=== PATIENT | female | born 1990 | race Caucasian/White ===

== ENCOUNTER 2018-05-24 06:42 | Inpatient (IN) ==
[2018-05-24 03:53] LABS: Bilirubin,Urine Negative (Negative); Blood,Urine Small (Negative); Clarity,Urine Clear (Clear); Color,Urine Yellow (Yellow); Glucose,Urine (UA) Normal (Normal); Ketones,Urine Negative (Negative); Leukocyte Esterase,Urine Negative (Negative); Nitrite,Urine Negative (Negative); Protein,Urine Negative (Neg-Trace); Specific Gravity,Urine 1.018 (1.010-1.025); Urobilinogen,Urine Normal (Normal)
[2018-05-24 03:55] LABS: Bacteria,Urine None Seen per hpf (None-Few); Hyaline Casts,Urine None Seen per lpf (None-Few); Squamous Epithelial Cell,Urine Many per lpf (None-Few); WBC,Urine 0-3 per hpf (0-3)
[2018-05-24 04:16] LABS: Amphetamine Screen,Urine Negative ng/mL (Cutoff=1000); Barbiturate Screen,Urine Negative ng/mL (Cutoff=200); Benzodiazepines Screen,Urine Negative ng/mL (Cutoff=200); Cannabinoid Screen,Urine Negative ng/mL (Cutoff = 50); Cocaine Screen,Urine Negative ng/mL (Cutoff= 300); Opiate Screen,Urine Negative ng/mL (Cutoff=300); Phencyclidine Screen,Urine Negative ng/mL (Cutoff=25)
[~2018-05-24 06:42] MED LIST: *HR* Nalbuphine 10 MG/ML AMPUL IVP PRN; Famotidine 20 MG/2 ML VIAL IVP PRN; Metoclopramide 10 MG/2 ML VIAL IVP PRN; Naloxone 0.4 MG/ML INJ IVP PRN; Ondansetron 4 MG/2 ML VIAL IVP PRN
--- NOTE | 2018-05-24 06:48 | OB/GYN History & Physical ---
Date of Encounter: 05/24/18 Time of Encounter: 06:47 Assessment and Plan (1) 39 weeks gestation of Current visit: Yes Status: Acute (2) Spontaneous onset of labor Current visit: Yes Status: Acute Admit for labor. Expectant management. Epidural when requested. Anticipate . Dr. Perrin notified. (3) Rh negative status during in third trimester, antepartum Current visit: Yes Status: Acute (4) Obesity affecting in third trimester, antepartum Current visit: Yes Status: Acute (5) macrosomia during in third trimester Current visit: Yes Status: Acute Qualifiers: Fetus number: single or unspecified fetus Qualified Code(s): O36.63X0 - Maternal care for excessive growth, third trimester, not applicable or unspecified History of Present Illness Chief complaint: contractions HPI: Ms. Nevarez is a 27 year old female presenting at 39w4d with c/o contractions that are getting stronger and leaking clear fluid. She denies bleeding or other complaints. Good FM. This has been complicated by obesity and vaginal varicosity rupture at 14 weeks as well as macrosomia. EFW 2 weeks ago was 8lbs 6oz per pt. Blood type O neg Rubella immune Serologies negative GBS negative Past Med Surg Social Fam HX - Past Medical History Medical history: no medical history Psychiatric history: no psych history - Past Surgical History Surgical History: no surgical history - Social History Smoking Status: Never smoker Smokeless Tobacco Status: No Alcohol use: none Drug use: none - Family History Mother Age: 50 Living Status: Still Living Hx Family Endocrine Disorder: Yes (type II diabetes) Obstetrical History - Pregnancies : 1 Medications and Allergies Gummies 05/24/18 [History] Tylenol 05/24/18 [History] 3 Allergy/AdvReac Type Severity Reaction Status Date / Time No Known Allergies Allergy Verified 05/24/18 03:15 Review of System OB All systems PM: reviewed and no additional remarkable complaints except as stated Exam - Constitutional Constitutional: well developed, moderate distress, obese - HEENT HEENT: Mucus Membranes Moist - Lungs Respiratory exam: CTAB - Cardiovascular Cardiovascular exam: RRR - Abdomen Abdomen: Present: gravid, non tender - Extremities Extremities exam: normal inspection - Cervix Dilation: 3 Effacement: 90 Station: -1 - Anus/Rectum Anus/Rectum: Present: normal perianal skin Results Abnormal lab results Urine Blood Small (Negative) H 05/24/18 03:35 Urine Microscopic RBC 3-5 per hpf (0-3) H 05/24/18 03:35 Ur Squamous Epith Cells Many per lpf (None-Few) H 05/24/18 03:35 All other labs normal. - VTE Reasons for not Prescribing Prophylaxis: Treatment not Indicated - Low risk for VTE
[2018-05-24] MEDS: Ringers Solution, Lactated 1,000 ML IVC SCH ×2 (07:36→13:08)
[2018-05-24 07:47] LABS: Basophils # 0.1 K/mcL (0.0-0.2); Basophils % 0.3 %; Eosinophils # 0.1 K/mcL (0.0-0.6); Eosinophils % 0.8 %; Hemoglobin 13.2 g/dL (11.5-15.4); Immature Granulocytes % 0.7 % (0-4); Lymphocytes # 2.8 K/mcL (0.6-4.6); Lymphocytes % 16.9 %; Mean Corpuscular Hemoglobin 25.5 pg (28.0-33.3); Mean Corpuscular Volume 77.2 fL (83.0-100.0); Mean Platelet Volume 10.7 fL (9.4-12.4); Monocytes # 1.3 K/mcL (0.0-1.3); Monocytes % 7.6 %; Neutrophils # 12.2 K/mcL (1.6-8.9); Platelet Count 282 K/mcL (140-400); Red Blood Count 5.18 M/mcL (3.82-4.97); Red Cell Distribution Width 18.1 % (11.5-14.5); Segmented Neutrophils % 73.7 %
--- NOTE | 2018-05-24 07:57 | Anesthesia Evaluation PreOp ---
Date of Encounter: 05/24/18 Time of Encounter: 07:46 - Past History Planned Operation: labor epidural Cardiac History: Denies any Significant Hx Pulmonary History: Denies Any Significant HX COSMETIC SALES CONSULTANT History: Denies Any Significant HX Other Medical History: Other (Morbid obesity. BMI 50.) Anesthesia History: No Prior Anesthetic Complications (Never had GA or sedation. Denies FHAP.) : Yes Alcohol Use: none Drug use: none Medications and Allergies Gummies 05/24/18 [History] Tylenol 05/24/18 [History] 3 Allergy/AdvReac Type Severity Reaction Status Date / Time No Known Allergies Allergy Verified 05/24/18 03:15 - Meds/Allergy Pre-op Review Medications Reviewed: Yes Allergies Reviewed: Yes Beta Blockers on Current Med List: No Anesthesia Results - Labs 05/24/18 07:20 Anesthesia Exam VSS and FHTs stable. Height: 1.6m Weight: 141kg NPO (# of Hours): 8 Pain Scale: 7 Pain Scale Used: Numeric (1 - 10) - HEENT Pupil (Motor): Pupils equal, EOMI Mallampati: II Teeth: Normal Oral Opening: Greater than 3 - COSMETIC SALES CONSULTANT LOC: Oriented COSMETIC SALES CONSULTANT Motor: Normal RUE, Normal LUE, Normal RLE, Normal LLE, Normal Face COSMETIC SALES CONSULTANT Sensory: Normal: RUE, LUE, RLE, LLE, Face - Cardiac Rhythm: Regular - Pulmonary Breath Sounds: bilateral Clear Respiratory Effort: Symmetrical Anesthesia Assess/Plan ASA Score: 3 Modified [place] Scale for Level of Consciousness: Cooperative, oriented, and tranquil Anesthetic Plan: Regional Monitoring Plan: Standard Monitors
[2018-05-24] MEDS ORDERED: Epidural Premix (fent/bupiv) 110 ML EP ONE ×2 (07:59→14:58)
[2018-05-24] MEDS ORDERED: *HR* FentaNYL (PF) 100 MCG/2 ML VIAL ONE (07:59)
[2018-05-24] MEDS ORDERED: Bupivacaine-MPF 0.25% 10 ML VIAL ONE (08:07)
[2018-05-24] MEDS ORDERED: Lidocaine -MPF 2% 5 ML VIAL ONE (08:07)
--- NOTE | 2018-05-24 08:46 | Anesthesia Procedures ---
Date of Encounter: 05/24/18 Time of Encounter: 08:09 Procedures: Anesthesia - Epidural/Spinal Patient ID/Chart reviewed: Yes Patient examined: Yes OB Eval: Gestational age: 39 OB Eval: : 1 OB Eval: Hx Para: 0 OB Eval: Dilated at (cm): 3 OB Eval: Contractions: Non-stressed pattern Consent Obtained: Yes Supplemental Oxygen: None/Room Air Site Prep: Aseptic Technique, Sterile prep and drape, Povidone-Iodine 1% Patient position: upright Local Anesthetic: Lidocaine 1% Amount of Local Anesthetic used: 3 Touhy Needle Gauge: 18 Touhy Needle Depth (cm): 7 Catheter Depth at Skin (cm): 18 Test Dose (1.5% Lido + Epi): Volume given (mls): 3 Test Dose Result: Negative Loading Dose: 0.25% Marcaine (mls): 8 Loading Dose: Fentanyl (mcg): 100 Loading Dose Administered: Thru Catheter Infusion Med: 0.125% Bupivacaine w/ 2 mcg/ml Fentanyl Infusion Rate (mls/hr): [address]: Tegaderm, Tape Interspace Used: L3-L4 Loss of Resistance (PEMA): Yes Blood: No CSF: No Paresthesia: No Vitals + FHT's: 3 Vital Signs Time 0809 0826 0830 0835 0840 BP 126/81 142/80 112/55 114/60 116/59 Pulse 99 103 99 102 99 FHTs 150 120 120 120 120
--- NOTE | 2018-05-24 10:39 | OB Labor Progress Note ---
Date of Encounter: 05/24/18 Time of Encounter: 10:37 Labor Progress Note - Subjective Subjective: Patient comfortable with epidural - Cervix Cervix: 5/80/-2 - Heart Tones Heart Tones: Category 1 tracing - Uehling Uehling: Contractions every 3-4 minutes - Interventions Interventions: SVE AROM forebag-thick meconium IUPC FSE - Plan Plan: Continue expectant management Frequent position changes with peanut ball Call Dr. Perrin for further orders Anticipate
[2018-05-24] MEDS ORDERED: 0.9 % Sodium Chloride 1,000 ML ONE (10:56)
[2018-05-24] MEDS ORDERED: Oxytocin 20 units/ LR 1000 mL 20 UNIT/1,000 ML BAG IVC SCH ×2 (11:30→19:45)
--- NOTE | 2018-05-24 17:03 | OB Labor Progress Note ---
Date of Encounter: 05/24/18 Time of Encounter: 17:04 Labor Progress Note - Subjective Subjective: 27 yo female who presented with PROM. Pt has labored all day with minimal cervical change. Pt wishes to proceed with a section. - Cervix Cervix: SVE 4-5/70/-1 station. - Heart Tones Heart Tones: 150-160 with accels. Pt has had intermittent late decelerations. - Interventions Interventions: Pt has been flipped side to side. Tried all positions to help. minimal cervical change - Plan Plan: Plan on primary section
[2018-05-24] MEDS ORDERED: Terbutaline 1 MG/ML VIAL SQ ONE ×2 (17:06→17:07)
[2018-05-24] MEDS ORDERED: *HR* Morphine Sulfate/PF 10 MG/10 ML AMPUL EP ONE (18:00)
[2018-05-24] MEDS ORDERED: Azithromycin 1,000 MG in D5% in Water 250 ML IVPB ONE (18:26)
[2018-05-24] MEDS ORDERED: ceFAZolin 3,000 MG in D5% in Water 100 ML IVPB ONE (18:26)
[2018-05-24] MEDS ORDERED: EPHEDrine 50 MG/ML VIAL ONE (18:32)
[2018-05-24] MEDS ORDERED: *HR* Oxytocin 10 UNIT/ML VIAL IM ONE ×2 (18:35→19:50)
[2018-05-24] MEDS ORDERED: Ringers Solution, Lactated 1,000 ML ONE ×2 (18:35→19:49)
[2018-05-24] MEDS ORDERED: Ondansetron 4 MG/2 ML VIAL ONE (18:56)
[2018-05-24] MEDS ORDERED: Acetaminophen IV 1,000 MG/100 ML INFUS..BTL IVPB ONE (19:25)
[2018-05-24] MEDS ORDERED: Ondansetron 4 MG/2 ML VIAL IVP ONE (19:25)
[2018-05-24] MEDS ORDERED: *HR* HYDROmorphone (PF) 1 MG/ML SYRINGE IVP PRN ×2 (19:25→22:25)
[2018-05-24] MEDS ORDERED: *HR* Promethazine 25 MG/ML VIAL IVP PRN (19:25)
[2018-05-24] MEDS ORDERED: *HR* Morphine 2 MG/ML SYRINGE IVP PRN ×2 (19:25→22:25)
[2018-05-24] MEDS ORDERED: *HR* OxyCODONE/APAP 5/325 TABLET PO PRN (19:43)
[2018-05-24] MEDS ORDERED: Sennosides 8.6 MG TABLET PO PRN (19:43)
[2018-05-24] MEDS ORDERED: Simethicone 80 MG TAB.CHEW PO PRN (19:43)
[2018-05-24] MEDS ORDERED: Metoclopramide 10 MG/2 ML VIAL IVP PRN (19:43)
[2018-05-24] MEDS ORDERED: Rho Immune Globulin 1,500 UNIT SYRINGE IM ONE (19:43)
[2018-05-24] MEDS ORDERED: Ondansetron 4 MG/2 ML VIAL IVP PRN (19:43)
[2018-05-24] MEDS ORDERED: Ibuprofen 600 MG TABLET PO PRN (19:43)
--- NOTE | 2018-05-24 19:51 | OB/GYN Procedure Note ---
Section - Date of procedure: 05/24/18 Preop diagnosis: arrest of descent, arrest of dilation, category 2 FHT tracing, other Post-op diagnosis: same Procedure: primary low transverse Surgeon: Umang Cooper Blood Loss: 700 Was there an assistant professor present: Yes Paper Steamer: Mely Romero Anesthesiologist: Florinda Brooks Hydro Plant Operator: Glory Callaway Anesthesia Type: Epidural - Infant (s) Infant A Delivery Date: 05/24/18 Delivery Time: 19:07 Presentation: vertex Position: OA Route of delivery: other Gender: Male Viability: Viable Pounds: 9 Ounces: 0 Gram Weight: 3.875 kg at 1 minute: 9 at 5 minutes: 9 Shoulder Dystocia: not encountered Specimens collected: cord blood Placenta: spontaneous Cord: 3 umbilical vessels - Narrative Narrative: Patient was taken back to the operating room after informed consent was obtained. Patient been laboring 16 hours with no change in over 6 hours. Patient having occasional late decelerations with meconium stained fluid being noted on presentation. Patient signed informed consent. Patient was taken back to the operating room IV in place she was discussed with her epidural. Once adequate analgesia was achieved, patient was prepped and draped in usual sterile fashion. Timeouts were performed. A Pfannenstiel incision was then made and carried sharply through the subcutaneous and fatty tissue to the fascia layer was reached. The fascia was then nicked in midline incised bilaterally with Cano scissors was then dissected vertically for adequate exposure. The rectus endoscopy procedures and separate the midline and the peritoneum sharply and dissected vertically. A bladder blade was placed at the inferior margin of the incision. The bladder flap was then developed. A low transverse incision was then made in the lower uterine segment. Fluid was noted be meconium-stained. The incision bluntly extended. The Pitocin delivered in occiput anterior presentation. The rest of the infant was not delivered. The cried immediately upon delivery course cut, there was a past nurse in attendance. Cord bloods obtained. The placenta was then delivered via uterine massage. The uterus was delivered and uterine lavage performed. Uterine incision was then closed with 0 Vicryl suture running locking fashion. One [id number] was placed for final hemostasis. At this point uterus was placed the pelvic cavity the pelvic cavity concern sterile water 20 bleeders cauterized. The fascia was then closed with loop 0 PDS from one edge of the opposite in a running nonlocking fashion. The suprafascial region of concern sterile water 2 all bleeders cauterized subcutaneous tissues were then placed with 0 Vicryl suture. The skin was closed cassidy. Patient tolerated procedure well stimulable also her cc findings a male with 9,9 Apgars weight is 9 lbs. 0 oz.
--- NOTE | 2018-05-24 21:32 | Anesthesia Evaluation Post Op ---
Date of Encounter: 05/24/18 Time of Encounter: 21:10 - Vital Signs Vital Signs: VSS throughout PACU stay - Lungs Lungs: Clear Ascult./Percussion - Airway Airway: Non-obstructed - Cardiovascular Regular Rate - Mental Status Mental Status: Alert & Oriented, Answers Appropriately - Pain Pain Scale: 3 Pain Scale used: Numeric (1 - 10) - Nausea Vomiting Nausea Vomiting: Not Present - Hydration Hydration: NPO, Johnson catheter - Discharge PostOp Status: Transfer Patient to floor
[2018-05-24] MEDS ORDERED: Oxytocin 20 units/ LR 1000 mL 20 UNIT/1,000 ML BAG IVC ONE (22:43)
[2018-05-25] MEDS: *HR* OxyCODONE/APAP 5/325 TABLET PO PRN ×4 (02:58→22:22)
[2018-05-25] MEDS ORDERED: Ringers Solution, Lactated 1,000 ML ONE (07:38)
[2018-05-25 07:46] LABS: Basophils % 0.3 %; Eosinophils # 0.1 K/mcL (0.0-0.6); Eosinophils % 0.5 %; Hematocrit 31.9 % (35.3-44.9); Hemoglobin 10.4 g/dL (11.5-15.4); Immature Granulocytes % 0.4 % (0-4); Lymphocytes # 1.9 K/mcL (0.6-4.6); Lymphocytes % 12.8 %; Mean Corpuscular HGB Conc 32.6 g/dL (31.6-35.5); Mean Corpuscular Hemoglobin 25.6 pg (28.0-33.3); Mean Corpuscular Volume 78.6 fL (83.0-100.0); Mean Platelet Volume 9.9 fL (9.4-12.4); Monocytes # 1.2 K/mcL (0.0-1.3); Monocytes % 7.9 %; Neutrophils # 11.6 K/mcL (1.6-8.9); Platelet Count 179 K/mcL (140-400); Red Blood Count 4.06 M/mcL (3.82-4.97); Red Cell Distribution Width 17.8 % (11.5-14.5); Segmented Neutrophils % 78.1 %
[2018-05-25] MEDS: Ringers Solution, Lactated 1,000 ML IVC SCH (07:53)
--- NOTE | 2018-05-25 07:58 | OB/GYN Progress Note ---
Date of Encounter: 05/25/18 Time of Encounter: 07:54 - Assessment and Plan (1) Meconium in amniotic fluid Current Visit: Yes Status: Acute (2) 39 weeks gestation of Current Visit: Yes Status: Acute (3) Arrest of dilation, delivered, current hospitalization Current Visit: Yes Status: Acute (4) macrosomia Current Visit: Yes Status: Acute Qualifiers: Fetus number: single or unspecified fetus Trimester: third trimester Qualified Code(s): O36.63X0 - Maternal care for excessive growth, third trimester, not applicable or unspecified Subjective - Subjective Principal diagnosis: s/p primary for arrest of dilation Interval history: 27 yo female P1 who presented in labor with prom. Pt had arrest of dilation and underwent primary section. Pt delivered 9# male infant. Patient reports: appetite normal, pain well controlled, ambulating normally : doing well, nursing well Objective - Vital Signs Latest vital signs: Vital Signs Temp Pulse Resp BP Pulse Ox 05/25/18 04:29 98.6 F 98 16 97/53 95 05/25/18 01:18 98.9 F 89 16 114/62 97 05/25/18 00:34 98.9 F 90 16 122/58 96 05/24/18 23:31 98.4 F 81 16 128/71 95 05/24/18 23:12 98.6 F 83 16 116/65 95 05/24/18 22:30 98.3 F 89 16 100/58 95 Intake and Output 05/24/18 05/24/18 05/25/18 15:59 23:59 07:59 Intake Total 1000 / 1000 Output Total 450 / 450 Balance 1000 / 1000 -450 / -450 Intake: IV Fluids 1000 / 1000 Lactated Ringers 1,000 ML @ 125 1000 / 1000 mls/hr IVC .Q8H JB Rx#: [id number] Output: Catheter 450 / 450 Other: Stool Characteristics Normal for Patient Weight 139.162 kg 139.2 kg Patient Weight 05/25/18 23:59 Weight 139.2 kg - Exam Lungs: bilateral: normal Chest: Normal S1, Normal S2 Extremities: Present: normal Abdomen: Present: normal appearance, soft Incision: Present: normal, dry, intact Uterus: Present: normal, firm - Labs Labs: Laboratory Results - last 24 hr 05/25/18 07:19 WBC 14.9 H RBC 4.06 Hgb 10.4 L D Hct 31.9 L MCV 78.6 L MCH 25.6 L MCHC 32.6 RDW 17.8 H Plt Count 179 MPV 9.9 Immature Gran % 0.4 Seg Neutrophils % 78.1 Lymphocytes % 12.8 Monocytes % 7.9 Eosinophils % 0.5 Basophils % 0.3 Neutrophils # 11.6 H Lymphocytes # 1.9 Monocytes # 1.2 Eosinophils # 0.1 Basophils # 0.0
[2018-05-25] MEDS ORDERED: Prenatal Vit/FA 1 EACH TABLET PO SCH (09:00)
[2018-05-25] MEDS ORDERED: Ibuprofen 600 MG TABLET PO PRN (16:11)
[2018-05-26] MEDS: *HR* OxyCODONE/APAP 5/325 TABLET PO PRN (05:47)
[2018-05-26 08:00] VITALS: BP 107/70
--- NOTE | 2018-05-26 08:14 | OB/GYN Progress Note ---
Date of Encounter: 05/26/18 Time of Encounter: 08:12 - Assessment and Plan (1) Meconium in amniotic fluid Current Visit: Yes Status: Acute (2) 39 weeks gestation of Current Visit: Yes Status: Acute (3) Arrest of dilation, delivered, current hospitalization Current Visit: Yes Status: Acute (4) macrosomia Current Visit: Yes Status: Acute Qualifiers: Fetus number: single or unspecified fetus Trimester: third trimester Qualified Code(s): O36.63X0 - Maternal care for excessive growth, third trimester, not applicable or unspecified (5) S/P primary low transverse Current Visit: Yes Status: Acute Subjective - Subjective Principal diagnosis: s/p primary Interval history: 27 yo female G1 underwent primary for arrest of dilation and macrosomic . Thick meconium noted early on. Pt underwent without difficult. Postop has done very well. Wishing to go home toda. Patient reports: appetite normal, pain well controlled, ambulating normally [place]: doing well (doing well ) Objective - Vital Signs Latest vital signs: Vital Signs Temp Pulse Resp BP Pulse Ox 05/26/18 07:59 98.6 F 89 16 107/70 96 05/25/18 20:13 98.0 F 93 16 118/73 100 05/25/18 16:52 98.1 F 97 16 107/71 96 05/25/18 12:25 98.4 F 98 16 98/61 95 Intake and Output 05/25/18 05/26/18 05/26/18 23:59 07:59 15:59 Intake Total 0 / 0 Output Total 400 / 400 650 / 650 Balance -400 / -400 -650 / -650 Intake: Oral 0 / 0 Output: Urine 400 / 400 650 / 650 Other: # Voids 1 Weight 140.024 kg Patient Weight 05/26/18 23:59 Weight 140.024 kg - Exam Lungs: bilateral: normal Chest: Normal S1 Extremities: Present: normal Abdomen: Present: normal appearance, soft Incision: Present: dry, intact Uterus: Present: normal - Labs Labs: Laboratory Results - last 24 hr 05/24/18 21:04 Baby's Blood Type O RH NEGATIVE Mother's Blood Type O RH NEGATIVE Rhogam Indicated NO
--- NOTE | 2018-05-26 08:19 | Discharge Summary ---
Date of Encounter: 05/26/18 Time of Encounter: 08:37 - Discharge Diagnosis (1) Meconium in amniotic fluid Priority: Secondary Status: Acute (2) 39 weeks gestation of Priority: Secondary Status: Acute (3) Arrest of dilation, delivered, current hospitalization Priority: Secondary Status: Acute (4) macrosomia Priority: Secondary Status: Acute Qualifiers: Fetus number: single or unspecified fetus Trimester: third trimester Qualified Code(s): O36.63X0 - Maternal care for excessive growth, third trimester, not applicable or unspecified (5) S/P primary low transverse Priority: Primary Status: Acute - Discharge Medications Home Medications: Gummies 05/24/18 [History] Tylenol 05/24/18 [History] Allergies/Adverse Reactions: 3 Allergy/AdvReac Type Severity Reaction Status Date / Time No Known Allergies Allergy Verified 05/24/18 03:15 Data Procedures and tests throughout hospitalization: Laboratory Tests 05/24/18 05/24/18 05/24/18 03:35 03:35 07:20 WBC 16.6 H RBC 5.18 H Hgb 13.2 Hct 40.0 MCV 77.2 L MCH 25.5 L MCHC 33.0 RDW 18.1 H Plt Count 282 MPV 10.7 Immature Gran % 0.7 Seg Neutrophils % 73.7 Lymphocytes % 16.9 Monocytes % 7.6 Eosinophils % 0.8 Basophils % 0.3 Neutrophils # 12.2 H Lymphocytes # 2.8 Monocytes # 1.3 Eosinophils # 0.1 Basophils # 0.1 Urine Color Yellow Urine Clarity Clear Urine pH 7.0 Ur Specific [place] 1.018 Urine Protein Negative Urine Glucose (UA) Normal Urine Ketones Negative Urine Blood Small H Urine Nitrite Negative Urine Bilirubin Negative Urine Urobilinogen Normal Ur Leukocyte Esterase Negative Urine Microscopic RBC 3-5 H Urine Microscopic WBC 0-3 Ur Squamous Epith Cells Many H Urine Bacteria None Seen Hyaline Casts None Seen Urine Opiates Screen Negative Ur Barbiturates Screen Negative Ur Phencyclidine Scrn Negative Ur Amphetamines Screen Negative U Benzodiazepines Scrn Negative Urine Cocaine Screen Negative U Marijuana (THC) Screen Negative Ur Drug Screen Interp See Below Baby's Blood Type Mother's Blood Type Rhogam Indicated 05/24/18 05/25/18 21:04 07:19 WBC 14.9 H RBC 4.06 Hgb 10.4 L D Hct 31.9 L MCV 78.6 L MCH 25.6 L MCHC 32.6 RDW 17.8 H Plt Count 179 MPV 9.9 Immature Gran % 0.4 Seg Neutrophils % 78.1 Lymphocytes % 12.8 Monocytes % 7.9 Eosinophils % 0.5 Basophils % 0.3 Neutrophils # 11.6 H Lymphocytes # 1.9 Monocytes # 1.2 Eosinophils # 0.1 Basophils # 0.0 Urine Color Urine Clarity Urine pH Ur Specific [place] Urine Protein Urine Glucose (UA) Urine Ketones Urine Blood Urine Nitrite Urine Bilirubin Urine Urobilinogen Ur Leukocyte Esterase Urine Microscopic RBC Urine Microscopic WBC Ur Squamous Epith Cells Urine Bacteria Hyaline Casts Urine Opiates Screen Ur Barbiturates Screen Ur Phencyclidine Scrn Ur Amphetamines Screen U Benzodiazepines Scrn Urine Cocaine Screen U Marijuana (THC) Screen Ur Drug Screen Interp Baby's Blood Type O RH NEGATIVE Mother's Blood Type O RH NEGATIVE Rhogam Indicated NO Labs on day of discharge: Labs from last 24 hours 05/24/18 21:04 Baby's Blood Type O RH NEGATIVE Mother's Blood Type O RH NEGATIVE Rhogam Indicated NO Date of admission: 05/24/18 06:42 Primary care physician: PCP NONE - Patient Status Disposition: Home, Self-Care Condition: Good Functional capacity at discharge: independent ambulation Overall status at discharge: patient is back to baseline - Discharge Instructions Follow Up With: NONE,PCP [Primary Care Provider] - - Diet and Activity Activity: resume usual activities as tolerated Diet: advance to your usual diet (doing well , wishes to go home) Hospital Course VOLUNTEER MANAGER Reason for admission: other (labor) Post op complications: no complications Discharge diagnosis: other (arrest of dilation, macrosomia, primary ) Time spent discussing smoking cessation with patient: more than 10 minutes Time Attestation: Total time spent providing and/or coordinating discharge services: Exam - Constitutional Vitals: Temp Pulse Resp BP Pulse Ox 98.6 F 89 16 107/70 96 05/26/18 07:59 05/26/18 07:59 05/26/18 07:59 05/26/18 07:59 05/26/18 07:59 General appearance IM: A&O X 3 - Respiratory Respiratory exam: Present: CTAB - Cardiovascular Cardiovascular exam IM: Present: RRR - GI/Abdominal GI/Abdominal exam IM: normal bowel sounds Incision: normal, dry, intact - Rectal Rectal exam: deferred - External exam: normal external exam Uterine Tone: Firm Uterus Position: 4 Fingers Below Umbilicus - Extremities Exam Extremities exam IM: Present: normal capillary refill, normal inspection - Neurological Exam Neurological exam: normal gait - VTE Reasons for not Prescribing Prophylaxis: Treatment not Indicated - Low risk for VTE Documentation of Mechanical Device: Intermittent pneumatic compression device
== END 2018-05-26 12:12 | disposition home or self-care (01) | DRG 765 ==
LOC: 1NENULAB → 1NENUOBS 22:26
PROVIDERS: ADMIT Obstetrics & Gynecology; ATTEND Obstetrics & Gynecology

== ENCOUNTER → 2020-08-16 16:30 | Observation (INO) ==
[2020-08-16 16:05] LABS: Bacteria,Urine Few per hpf (None-Few); Bilirubin,Urine Negative (Negative); Blood,Urine Negative (Negative); Clarity,Urine Clear (Clear); Color,Urine Light-Yellow (Yellow); Glucose,Urine (UA) 500 mg/dL (Normal); Ketones,Urine Trace mg/dL (Negative); Leukocyte Esterase,Urine Negative (Negative); Mucus,Urine Few per lpf (None-Few); Nitrite,Urine Negative (Negative); Protein,Urine Trace mg/dL (Neg-Trace); RBC,Urine 0-3 per hpf (0-3); Specific Gravity,Urine > 1.030 (1.010-1.025); Squamous Epithelial Cell,Urine Few per hpf (None-Few); Urobilinogen,Urine Normal (Normal); WBC,Urine 0-3 per hpf (0-3)
[~2020-08-16 16:30] MED LIST changes: -*HR* Nalbuphine 10 MG/ML AMPUL IVP PRN; +FLU Vac QV 20-21 (6Month+)/PF 0.5 ML SYRINGE IM ONE; -Famotidine 20 MG/2 ML VIAL IVP PRN; -Metoclopramide 10 MG/2 ML VIAL IVP PRN; -Naloxone 0.4 MG/ML INJ IVP PRN; -Ondansetron 4 MG/2 ML VIAL IVP PRN
== END | disposition home or self-care (01) ==
LOC: 1NENULAB
PROVIDERS: ADMIT Obstetrics & Gynecology; ATTEND Obstetrics & Gynecology

== ENCOUNTER → 2020-10-27 19:28 | Observation (INO) ==
[2020-10-27 18:42] LABS: Basophils % 0.2 %; Eosinophils # 0.1 K/mcL (0.0-0.6); Eosinophils % 0.8 %; Hematocrit 34.2 % (35.3-44.9); Hemoglobin 10.4 g/dL (11.5-15.4); Immature Granulocytes % 0.8 % (0-4); Lymphocytes # 2.4 K/mcL (0.6-4.6); Mean Corpuscular HGB Conc 30.4 g/dL (31.6-35.5); Mean Corpuscular Hemoglobin 22.8 pg (28.0-33.3); Mean Platelet Volume 10.5 fL (9.4-12.4); Monocytes % 7.1 %; Neutrophils # 10.5 K/mcL (1.6-8.9); Platelet Count 217 K/mcL (140-400); Red Blood Count 4.56 M/mcL (3.82-4.97); Red Cell Distribution Width 17.2 % (11.5-14.5); Segmented Neutrophils % 74.1 %; White Blood Count 14.1 K/mcL (4.3-11.1)
[2020-10-27 18:51] LABS: Protein/Creatinine Ratio,Urine 0.17 mg/mg (0.00-0.20)
[2020-10-27 19:01] LABS: Alanine Aminotransferase 8 Units/L (7-52); Aspartate Amino Transferase 11 Units/L (13-39); BUN/Creatinine Ratio 18 (6-26); Blood Urea Nitrogen 10 mg/dL (6-20); Lactate Dehydrogenase 124 Units/L (140-271); Uric Acid 3.1 mg/dL (2.3-7.6); eGFR For African Americans > 60 (> 60); eGFR For Non-African Americans > 60 (> 60)
[2020-10-27 19:06] LABS: Bacteria,Urine Few per hpf (None-Few); Bilirubin,Urine Negative (Negative); Blood,Urine Trace (Negative); Clarity,Urine Turbid (Clear); Color,Urine Light-Yellow (Yellow); Glucose,Urine (UA) 300 mg/dL (Normal); Ketones,Urine Negative (Negative); Leukocyte Esterase,Urine Negative (Negative); Mucus,Urine Few per lpf (None-Few); Nitrite,Urine Negative (Negative); Protein,Urine Trace mg/dL (Neg-Trace); Specific Gravity,Urine 1.026 (1.010-1.025); Squamous Epithelial Cell,Urine Moderate per hpf (None-Few); Urobilinogen,Urine Normal (Normal)
== END | disposition home or self-care (01) ==
LOC: 1NENULAB
PROVIDERS: ADMIT Student in an Organized Health Care Education/Training Program; ATTEND Student in an Organized Health Care Education/Training Program

== ENCOUNTER 2020-11-11 05:30 | Inpatient (IN) ==
[2020-11-11] MEDS ORDERED: Famotidine 20 MG/2 ML VIAL IVP PRN (06:03)
[2020-11-11] MEDS ORDERED: Naloxone 0.4 MG/ML INJ IVP PRN (06:03)
[2020-11-11] MEDS ORDERED: Azithromycin 500 MG in 0.9 % Sodium Chloride 250 ML IVPB ONE (06:03)
[2020-11-11] MEDS ORDERED: Metoclopramide 10 MG/2 ML VIAL IVP PRN ×2 (06:03→11:26)
[2020-11-11] MEDS ORDERED: Ringers Solution, Lactated 1,000 ML IVC SCH (06:15)
[2020-11-11] MEDS ORDERED: ceFAZolin 3,000 MG in 0.9 % Sodium Chloride 100 ML IVPB ONE (06:28)
[2020-11-11 06:31] LABS: Basophils % 0.3 %; Eosinophils # 0.2 K/mcL (0.0-0.6); Eosinophils % 1.5 %; Hematocrit 37.7 % (35.3-44.9); Hemoglobin 11.3 g/dL (11.5-15.4); Immature Granulocytes % 0.6 % (0-4); Lymphocytes # 2.5 K/mcL (0.6-4.6); Lymphocytes % 19.9 %; Mean Corpuscular Volume 76.8 fL (83.0-100.0); Mean Platelet Volume 10.2 fL (9.4-12.4); Monocytes % 7.7 %; Neutrophils # 8.6 K/mcL (1.6-8.9); Platelet Count 262 K/mcL (140-400); Red Blood Count 4.91 M/mcL (3.82-4.97); Red Cell Distribution Width 18.7 % (11.5-14.5); White Blood Count 12.3 K/mcL (4.3-11.1)
[2020-11-11] MEDS ORDERED: *HR* Morphine Sulfate/PF 10 MG/10 ML AMPUL ONE (06:51)
[2020-11-11] MEDS ORDERED: *HR* FentaNYL (PF) 100 MCG/2 ML VIAL ONE (06:51)
[2020-11-11] MEDS ORDERED: EPHEDrine 50 MG/ML VIAL ONE (07:03)
[2020-11-11] MEDS ORDERED: Acetaminophen IV 1,000 MG/100 ML BAG IVPB ONE (07:11)
[2020-11-11] MEDS ORDERED: Ondansetron 4 MG/2 ML VIAL ONE (07:12)
[2020-11-11] MEDS ORDERED: Ringers Solution, Lactated 1,000 ML ONE (07:52)
[2020-11-11 07:53] LABS: Amphetamine Screen,Urine Negative ng/mL (Cutoff=1000); Barbiturate Screen,Urine Negative ng/mL (Cutoff=200); Benzodiazepines Screen,Urine Negative ng/mL (Cutoff=200); Cannabinoid Screen,Urine Negative ng/mL (Cutoff = 50); Cocaine Screen,Urine Negative ng/mL (Cutoff= 300); Opiate Screen,Urine Negative ng/mL (Cutoff=300); Phencyclidine Screen,Urine Negative ng/mL (Cutoff=25)
[2020-11-11] MEDS ORDERED: Oxytocin 20 units/ LR 1000 mL 20 UNIT/1,000 ML BAG IVC ONE (07:53)
[2020-11-11] MEDS ORDERED: Oxytocin 20 units/ LR 1000 mL 0 UNIT/0 ML BAG IVC ONE (09:31)
[2020-11-11] MEDS ORDERED: *HR* OxyCODONE Immed Rel 5 MG TABLET PO PRN (09:33)
[2020-11-11] MEDS ORDERED: *HR* HYDROmorphone PF 0.5 MG/0.5 ML SYRINGE IVP PRN (09:33)
[2020-11-11] MEDS ORDERED: Ondansetron 4 MG/2 ML VIAL IVP PRN ×2 (09:33→11:26)
[2020-11-11] MEDS ORDERED: Rho Immune Globulin 1,500 UNIT SYRINGE IM ONE (11:26)
[2020-11-11] MEDS ORDERED: Oxytocin 20 units/ LR 1000 mL 20 UNIT/1,000 ML BAG IVC SCH (11:26)
[2020-11-11] MEDS ORDERED: NON-FORMULARY MEDICATION 1 EACH EACH (Prenatal 19 Tablet 1 TAB) PO SCH (11:26)
[2020-11-11] MEDS ORDERED: Sennosides 8.6 MG TABLET PO PRN (11:26)
[2020-11-11] MEDS ORDERED: Simethicone 80 MG TAB.CHEW PO PRN (11:26)
[2020-11-11] MEDS: Ibuprofen 600 MG TABLET PO PRN (11:45)
[2020-11-11] MEDS: metroNIDAZOLE 500 MG TABLET PO SCH ×3 (11:45→20:34)
[2020-11-11] MEDS: Prenatal Vit/FA 1 EACH TABLET PO SCH ×2 (11:45→12:04)
[2020-11-11] MEDS: *HR* OxyCODONE/APAP 5/325 TABLET PO PRN ×2 (16:51→23:39)
[2020-11-12] MEDS: Ibuprofen 600 MG TABLET PO PRN ×4 (04:32→21:27)
[2020-11-12 05:07] LABS: Basophils # 0.1 K/mcL (0.0-0.2); Basophils % 0.5 %; Eosinophils # 0.2 K/mcL (0.0-0.6); Eosinophils % 1.6 %; Hematocrit 30.7 % (35.3-44.9); Immature Granulocytes % 0.7 % (0-4); Lymphocytes # 1.9 K/mcL (0.6-4.6); Mean Corpuscular HGB Conc 30.6 g/dL (31.6-35.5); Mean Corpuscular Hemoglobin 23.7 pg (28.0-33.3); Mean Corpuscular Volume 77.3 fL (83.0-100.0); Mean Platelet Volume 10.4 fL (9.4-12.4); Monocytes # 0.8 K/mcL (0.0-1.3); Monocytes % 7.7 %; Neutrophils # 7.6 K/mcL (1.6-8.9); Platelet Count 191 K/mcL (140-400); Red Blood Count 3.97 M/mcL (3.82-4.97); Red Cell Distribution Width 18.6 % (11.5-14.5); Segmented Neutrophils % 71.5 %; White Blood Count 10.6 K/mcL (4.3-11.1)
[2020-11-12 05:11] LABS: Hemoglobin 9.4 g/dL (11.5-15.4)
[2020-11-12] MEDS: *HR* Enoxaparin 40 MG/0.4 ML SYRINGE SQ SCH (09:29)
[2020-11-12] MEDS: *HR* OxyCODONE/APAP 5/325 TABLET PO PRN ×3 (09:31→21:27)
[2020-11-12] MEDS: metroNIDAZOLE 500 MG TABLET PO SCH ×3 (09:31→21:27)
[2020-11-12] MEDS ORDERED: Rho Immune Globulin 1,500 UNIT SYRINGE IM ONE (17:00)
[2020-11-13] MEDS: Ibuprofen 600 MG TABLET PO PRN (03:44)
[2020-11-13] MEDS: *HR* OxyCODONE/APAP 5/325 TABLET PO PRN ×2 (03:44→09:58)
[2020-11-13] MEDS: *HR* Enoxaparin 40 MG/0.4 ML SYRINGE SQ SCH (06:46)
[2020-11-13 07:49] VITALS: BP 124/7
[2020-11-13] MEDS: Prenatal Vit/FA 1 EACH TABLET PO SCH (09:03)
== END 2020-11-13 10:44 | disposition home or self-care (01) | DRG 788 ==
LOC: 1NENULAB 05:30 → 1NENUOBS 11:15
PROVIDERS: ADMIT Obstetrics & Gynecology; ATTEND Obstetrics & Gynecology